=== PATIENT | female | born 1985 | race Caucasian/White ===

== ENCOUNTER 2020-12-03 11:11 | Observation (INO) | payer MEDICAID ==
[~2020-12-03] VITALS: Ht 162.6 cm; Wt 93.4 kg
[2020-12-03] MEDS ORDERED: BUTORPHANOL TARTRATE 2 MG/ML VIAL IM PRN (12:00)
[2020-12-03] MEDS ORDERED: ONDANSETRON HCL 4MG/2ML INJ IV PRN (12:00)
[2020-12-03] MEDS ORDERED: LACTATED RINGERS 1,000 ML IV SCH (12:00)
[2020-12-03] MEDS ORDERED: CEFAZOLIN 1000MG PREMIX 50 ML IV SCH (12:15)
[2020-12-03 12:33] LABS: BASOPHILS % 0.6 % (0.0-2.0); EOSINOPHILS % 0.8 % (0.0-5.0); HEMATOCRIT. 37.7 % (36.0-48.0); HEMOGLOBIN. 12.8 g/dL (12.0-16.0); LYMPHOCYTES % 30.9 % (20.0-50.0); MEAN PLATELET VOLUME 8.8 fl (7.4-10.4); MONOCYTES % 5.6 % (2.0-8.0); NEUTROPHILS % 62.1 % (40.0-76.0); PLATELET 272 x1000/uL (130-400); RED BLOOD CELL COUNT 4.14 mill/uL (4.2-5.4); RED CELL DISTRIBUTION WIDTH 12.9 % (11.6-14.6)
[2020-12-03 12:41] LABS: CHLORIDE 110 mEq/L (98-107)
[2020-12-03] MEDS ORDERED: BUTORPHANOL TARTRATE 2 MG/ML VIAL IV PRN (12:48)
[2020-12-03 12:54] VITALS: BP 104/55
[2020-12-03 13:54] LABS: CLARITY URINE CLEAR (CLEAR); COLOR URINE YELLOW (YELLOW); KETONES URINE 1+ (NEGATIVE); LEUKOCYTE ESTERASE URINE TRACE (NEGATIVE); NITRITE URINE NEGATIVE (NEGATIVE); OCCULT BLOOD URINE NEGATIVE (NEGATIVE); PH URINE 8.5 (4.5-8.0); PROTEIN URINE NEGATIVE (NEGATIVE); SPECIFIC GRAVITY URINE 1.007 (1.005-1.030); UROBILINOGEN URINE 0.2 E.U./dL (0.2-1.0)
[2020-12-03 14:23] LABS: *BARBITURATES SCREEN URINE NEGATIVE (NEGATIVE); *BENZODIAZEPINES SCREEN URINE NEGATIVE (NEGATIVE)
[2020-12-03 14:24] LABS: *COCAINE SCREEN URINE NEGATIVE (NEGATIVE); METHADONE URINE SCREEN NEGATIVE (NEGATIVE); OPIATES URINE SCREEN NEGATIVE (NEGATIVE); PHENCYCLIDINE URINE SCREEN NEGATIVE (NEGATIVE)
[2020-12-03 14:25] LABS: *AMPHETAMINES SCREEN URINE NEGATIVE (NEGATIVE)
[2020-12-03] MEDS ORDERED: POTASSIUM CHLORIDE INJ 40 MEQ in DEXTROSE 5% WATER 1,000 ML IV SCH (14:30)
[2020-12-03 14:31] LABS: CANNABINOID URINE SCREEN PRESUMTIVE POSITIVE (NEGATIVE)
[2020-12-03] MEDS ORDERED: DEXT 5% WATER + KCL 40MEQ/L 1,000 ML IV SCH (15:00)
[2020-12-03] MEDS ORDERED: PNV1TABL76 MT (16:56)
== END 2020-12-03 17:05 | disposition home or self-care (01) ==
LOC: 8 EST LDRP 11:11
PROVIDERS: ADMIT Specialist; ATTEND Specialist
DX: O26.893 Other specified pregnancy related conditions, third trimester (principal); R10.10 Upper abdominal pain, unspecified; Z3A.35 35 weeks gestation of pregnancy; Z79.899 Other long term (current) drug therapy
CPT/HCPCS: 36415; 59025; 76700; 76805; 76818; 80053; 80305; 80349; 81003; 85025; 96361; 96365; 96375; G0378; J0595; J0690; J2405; J3480; J7070; 96360; 99281; J7060; J7120

== ENCOUNTER 2020-12-21 05:23 | Inpatient (IN) | payer MEDICAID ==
[~2020-12-21] VITALS: Ht 162.6 cm; Wt 89.4 kg
[~2020-12-21 05:23] MED LIST: PNV1TABL76 MT
[2020-12-21] MEDS ORDERED: ACETAMINOPHEN WITH CODEINE 300/30MG TABLET PO SCH (05:45)
[2020-12-21] MEDS ORDERED: TOPUD PO (05:56)
[2020-12-21] MEDS ORDERED: METHYLERGONOVINE MALEATE 0.2 MG/ML IM PRN (08:30)
[2020-12-21] MEDS ORDERED: CARBOPROST TROMETHAMINE 250 MCG/ML AMPUL IM PRN (08:30)
[2020-12-21] MEDS ORDERED: DEXT 5%/LR + PITOCIN 20UNITS/L 1,000 ML IV SCH (08:30)
[2020-12-21] MEDS ORDERED: ONDANSETRON HCL 4MG/2ML INJ IM NR (09:00)
[2020-12-21] MEDS ORDERED: CITRIC ACID/SODIUM CITRATE SOLN 30ML UDC PO NR (09:15)
[2020-12-21] MEDS: LACTATED RINGERS 1,000 ML IV SCH ×2 (09:17→11:12)
[2020-12-21 09:52] LABS: PARTIAL THROMBOPLASTIN TIME 32.4 sec (23.4-31.0); PROTHROMBIN TIME 10.3 sec (9.6-11.0)
[2020-12-21 09:56] LABS: BASOPHILS % 0.7 % (0.0-2.0); EOSINOPHILS % 0.1 % (0.0-5.0); HEMOGLOBIN. 13.4 g/dL (12.0-16.0); LYMPHOCYTES % 20.1 % (20.0-50.0); MEAN CORPUSCULAR HEMOGLOBIN 30.3 pg (28.0-32.0); MEAN CORPUSCULAR VOLUME 90.3 fL (81.0-99.0); MEAN PLATELET VOLUME 9.8 fl (7.4-10.4); MONOCYTES % 3.8 % (2.0-8.0); NEUTROPHILS % 75.3 % (40.0-76.0); PLATELET 247 x1000/uL (130-400); RED BLOOD CELL COUNT 4.43 mill/uL (4.2-5.4)
[2020-12-21 10:11] LABS: CLARITY URINE CLEAR (CLEAR); COLOR URINE YELLOW (YELLOW); KETONES URINE 3+ (NEGATIVE); LEUKOCYTE ESTERASE URINE 2+ (NEGATIVE); NITRITE URINE NEGATIVE (NEGATIVE); OCCULT BLOOD URINE NEGATIVE (NEGATIVE); PROTEIN URINE NEGATIVE (NEGATIVE); SPECIFIC GRAVITY URINE 1.015 (1.005-1.030); UROBILINOGEN URINE 0.2 E.U./dL (0.2-1.0)
[2020-12-21 10:39] LABS: *BARBITURATES SCREEN URINE NEGATIVE (NEGATIVE)
[2020-12-21 10:40] LABS: *BENZODIAZEPINES SCREEN URINE NEGATIVE (NEGATIVE); *COCAINE SCREEN URINE NEGATIVE (NEGATIVE); METHADONE URINE SCREEN NEGATIVE (NEGATIVE); PHENCYCLIDINE URINE SCREEN NEGATIVE (NEGATIVE)
[2020-12-21 10:42] LABS: *AMPHETAMINES SCREEN URINE NEGATIVE (NEGATIVE)
[2020-12-21 11:00] LABS: CANNABINOID URINE SCREEN PRESUMTIVE POSITIVE (NEGATIVE); OPIATES URINE SCREEN PRESUMTIVE POSITIVE (NEGATIVE)
[2020-12-21] MEDS ORDERED: PHENYLEPHRINE HCL 10 MG/ML 1ML (IV VIAL) IV ONE (11:22)
[2020-12-21] MEDS ORDERED: GLYCOPYRROLATE 0.2 MG/ML 2ML VIAL ONE (11:22)
[2020-12-21] MEDS ORDERED: EPHEDRINE SULFATE 50MG/ML VIAL ONE (11:22)
[2020-12-21] MEDS ORDERED: MORPHINE SULFATE/PF 1MG/ML 10ML AMP ONE (11:22)
[2020-12-21] MEDS ORDERED: CEFAZOLIN SODIUM 1000MG/VIAL ONE (11:22)
[2020-12-21] MEDS ORDERED: OXYTOCIN 10 UNITS/ML 1ML ONE (11:22)
[2020-12-21] MEDS ORDERED: FENTANYL CITRATE/PF 50MCG/ML 2ML VIAL ONE (11:22)
[2020-12-21 12:09] LABS: HEPATITIS B SURFACE ANTIGEN NEGATIVE
[2020-12-21] MEDS ORDERED: KETOROLAC 60MG/2ML VIAL IM ONE (12:12)
[2020-12-21] MEDS ORDERED: DIPHENHYDRAMINE 50MG/ML VIAL ONE (12:12)
[2020-12-21] MEDS ORDERED: BUTORPHANOL TARTRATE 2 MG/ML VIAL IV PRN (12:15)
[2020-12-21] MEDS ORDERED: NALOXONE HCL 0.4 MG/ML 1ML VIAL IV PRN (12:15)
[2020-12-21] MEDS ORDERED: DIPHENHYDRAMINE 50MG/ML VIAL IV PRN (12:15)
[2020-12-21] MEDS ORDERED: IBUPROFEN 400MG TABLET PO PRN (12:45)
[2020-12-21] MEDS ORDERED: BISACODYL 10MG SUPP PR PRN (12:45)
[2020-12-21] MEDS ORDERED: DIPHENHYDRAMINE 25MG CAPSULE PO PRN (12:45)
[2020-12-21] MEDS ORDERED: LANOLIN OINT 7GM TUBE TOP PRN (12:45)
[2020-12-21] MEDS ORDERED: ONDANSETRON HCL 4MG/2ML INJ IV PRN (12:45)
[2020-12-21] MEDS ORDERED: HYDROCODONE/ACETAMINOPHEN 5/325MG TABLET PO PRN (13:00)
[2020-12-21 14:30] VITALS: BP 99/53
[2020-12-21] MEDS: KETOROLAC 30MG/ML VIAL IV SCH ×3 (14:30→22:48)
[2020-12-21 15:00] VITALS: BP 102/62
[2020-12-21] MEDS: DEXT 5%/LR + PITOCIN 20UNITS/L 1,000 ML IV SCH ×2 (16:22→23:33)
[2020-12-21] MEDS: SIMETHICONE 80MG TABLET CHEW PO SCH ×2 (17:26→22:40)
[2020-12-21 18:03] VITALS: BP 95/57
[2020-12-21 20:00] VITALS: BP 99/55
[2020-12-21] MEDS: DOCUSATE SODIUM 100MG CAPSULE PO SCH (22:40)
[2020-12-22] VITALS: BP 98/62
[2020-12-22] MEDS ORDERED: HYDROCODONE/ACETAMINOPHEN 5/325MG TABLET PO PRN (00:17)
[2020-12-22 04:00] VITALS: BP 98/58
[2020-12-22] MEDS: IBUPROFEN 800MG TABLET PO PRN ×3 (06:29→18:05)
[2020-12-22 07:28] VITALS: BP 105/76
[2020-12-22 07:39] LABS: BASOPHILS % 0.3 % (0.0-2.0); HEMOGLOBIN. 10.9 g/dL (12.0-16.0); LYMPHOCYTES % 28.3 % (20.0-50.0); MEAN CORPUSCULAR HEMOGLOBIN 30.9 pg (28.0-32.0); MEAN CORPUSCULAR VOLUME 90.9 fL (81.0-99.0); MEAN PLATELET VOLUME 9.7 fl (7.4-10.4); MONOCYTES % 6.8 % (2.0-8.0); NEUTROPHILS % 63.6 % (40.0-76.0); PLATELET 204 x1000/uL (130-400); RED BLOOD CELL COUNT 3.53 mill/uL (4.2-5.4); RED CELL DISTRIBUTION WIDTH 13.4 % (11.6-14.6)
[2020-12-22] MEDS: FERROUS SULFATE 325MG TABLET PO SCH ×3 (08:18→18:05)
[2020-12-22] MEDS: PRENATAL VIT/FE FUMARATE/FA TABLET PO SCH (08:18)
[2020-12-22] MEDS: SIMETHICONE 80MG TABLET CHEW PO SCH ×4 (08:18→21:12)
[2020-12-22 16:04] VITALS: BP 111/74
[2020-12-22 20:00] VITALS: BP 118/83
[2020-12-22] MEDS: DOCUSATE SODIUM 100MG CAPSULE PO SCH (21:12)
[2020-12-23] MEDS: IBUPROFEN 800MG TABLET PO PRN ×2 (00:29→08:11)
[2020-12-23 04:02] VITALS: BP 107/72
[2020-12-23 07:30] VITALS: BP 117/79
[2020-12-23] MEDS: PRENATAL VIT/FE FUMARATE/FA TABLET PO SCH (08:10)
[2020-12-23] MEDS: FERROUS SULFATE 325MG TABLET PO SCH (08:10)
[2020-12-23] MEDS: SIMETHICONE 80MG TABLET CHEW PO SCH (08:11)
[2020-12-26 16:39] LABS: CANNABINOID CONFIRMATION URINE Positive (.); OPIATES CONFIRMATION URINE Positive (.)
== END 2020-12-23 13:00 | disposition home or self-care (01) | DRG 540 ==
LOC: 8 EST LDRP 05:23 → OBSVTOIN 05:23 → 8EST 14:18
PROVIDERS: ADMIT Specialist; ATTEND Specialist
PROC: 10D00Z1 Extraction of Products of Conception, Low, Open Approach (ICD-10-PCS; principal; 2020-12-21)
PROC: 0UB70ZZ Excision of Bilateral Fallopian Tubes, Open Approach (ICD-10-PCS; 2020-12-21)
DX: O34.211 Maternal care for low transverse scar from previous cesarean delivery (principal); O69.81X0 Labor and delivery complicated by cord around neck, without compression, not applicable or unspecified; O99.324 Drug use complicating childbirth; F12.10 Cannabis abuse, uncomplicated; Z20.822 Contact with and (suspected) exposure to COVID-19; Z3A.38 38 weeks gestation of pregnancy; Z37.0 Single live birth; Z88.5 Allergy status to narcotic agent; Z30.2 Encounter for sterilization
CPT/HCPCS: 36415; 76705; 76805; 76818; 80305; 80349; 80361; 81003; 85025; 86592; 86703; 86762; 86850; 86900; 87340; 87426; 88302; 88307; 99281; J0690; J1200; J1885; J2274; J2370; J2405; J2590; J3010; J3490; J7120; A4315